=== PATIENT | female | born 1950 | race Two or more races ===

== ENCOUNTER 2017-07-18 13:06 | Outpatient (CLI) | payer OTHER ==
[~2017-07-18 13:06] MED LIST: ADVAIR 2501 DISK W/1 IH; AMOX1TAB12 PO; FENOFIBRATE160 MG; GLIMEPIRIDE4 MG; GLUCOVANCE 2.5/1 TAB; L-METHYL-MC TA1 EACH; LANTUS SOL100 UNIT/1; LANTUS100 U/ML; LEVAQUIN500 MG PO; METFORMIN HCL1000 MG; METFORMIN HCL500 MG; METROGEL-VAGINA70 GM VG; ORPH100T PO; OSTERA TABLET1 EACH; PROAIR RESPICL90 MCG; PROAIR RESPICLICK; PROVENTIL HFA6.7 GM IH; PROVENTIL3 ML/2.5 M; SYMBICORT 16010.2 GM; SYNTHROID150 MCG PO; SYNTHROID175 MCG PO; TRAM1TAB98 PO; TRAMADOL HCL-AP1 TAB PO; ULTRACET PO; XARELTO15 MG PO; XARELTO20 MG PO; ZESTORETIC 10-1 EACH; ZESTORETIC 20/11 TAB PO; ZOCOR40 MG PO
== END 2017-07-18 13:14 | disposition home or self-care (01) ==
LOC: RAD 13:06
DX: M25.562 Pain in left knee (principal)

== ENCOUNTER 2020-03-29 08:31 | Outpatient (CLI) | payer OTHER | END 2020-03-29 08:35 | disposition home or self-care (01) | LOC: SONOGRAMA 08:31 | PROVIDERS: ATTEND Specialist/Technologist, Other Nephrology | DX: K76.0 Fatty (change of) liver, not elsewhere classified (principal); N13.8 Other obstructive and reflux uropathy ==

== ENCOUNTER 2020-04-16 10:16 | Outpatient (CLI) | payer OTHER | END 2020-04-16 10:25 | disposition home or self-care (01) | LOC: NUCLEAR 10:16 | PROVIDERS: ATTEND Family Medicine Adult Medicine | DX: M81.0 Age-related osteoporosis without current pathological fracture (principal) ==

== ENCOUNTER 2020-12-25 11:28 | Emergency (ER) | payer OTHER ==
[~2020-12-25] VITALS: Ht 172.7 cm; Wt 97.5 kg
== END 2020-12-25 14:18 | disposition home or self-care (01) ==
LOC: ER 11:28
DX: I73.9 Peripheral vascular disease, unspecified (principal); M79.604 Pain in right leg

== ENCOUNTER → 2021-08-31 | Emergency (ER) | payer OTHER ==
[~2021-08-31] VITALS: Ht 172.7 cm; Wt 92.1 kg
[~2021-08-31] MED LIST changes: +ATORVASTATIN CA10 MG; +DAFLONEX-XL 11300 MG PO; +HYDROCHLOROTH12.5 MG PO; +MONTELUKAST SODI4 M1
== END | disposition home or self-care (01) ==
LOC: ER 10:41
DX: M79.662 Pain in left lower leg (principal); I80.232 Phlebitis and thrombophlebitis of left tibial vein; I87.2 Venous insufficiency (chronic) (peripheral)

== ENCOUNTER 2021-12-17 20:40 | Emergency (ER) | payer OTHER ==
[~2021-12-17] VITALS: Ht 172.7 cm; Wt 89.8 kg
== END 2021-12-17 21:43 | disposition home or self-care (01) ==
LOC: ER 20:40
DX: E11.621 Type 2 diabetes mellitus with foot ulcer (principal); I10 Essential (primary) hypertension; E07.9 Disorder of thyroid, unspecified; Z87.09 Personal history of other diseases of the respiratory system; Z88.6 Allergy status to analgesic agent; Z88.2 Allergy status to sulfonamides; Z79.4 Long term (current) use of insulin; L97.519 Non-pressure chronic ulcer of other part of right foot with unspecified severity

== ENCOUNTER 2022-06-25 18:59 | Emergency (ER) | payer OTHER ==
[~2022-06-25] VITALS: Ht 172.7 cm; Wt 90.3 kg
[~2022-06-25 18:59] MED LIST changes: +AMLODIPINE BESYL5 MG PO; +GABAPENTIN300 MG PO; +LIPITOR40 MG PO; +LISINOPRIL20 MG PO
== END 2022-06-25 21:25 | disposition home or self-care (01) ==
LOC: ER
DX: L03.031 Cellulitis of right toe (principal); Z89.411 Acquired absence of right great toe; Z88.2 Allergy status to sulfonamides; Z88.6 Allergy status to analgesic agent; E11.9 Type 2 diabetes mellitus without complications; Z79.4 Long term (current) use of insulin

== ENCOUNTER 2023-03-27 11:08 | Outpatient (CLI) | payer OTHER | END 2023-03-27 11:13 | disposition home or self-care (01) | LOC: RAD 11:08 | PROVIDERS: ATTEND Internal Medicine Pulmonary Disease | DX: J43.2 Centrilobular emphysema (principal); Z88.2 Allergy status to sulfonamides ==

== ENCOUNTER 2023-03-28 09:57 | Outpatient (CLI) | payer OTHER | END 2023-03-28 13:35 | disposition home or self-care (01) | LOC: MAMO-SONO 09:57 | PROVIDERS: ATTEND Family Medicine Adult Medicine | DX: Z12.31 Encounter for screening mammogram for malignant neoplasm of breast (principal) ==

== ENCOUNTER 2023-07-23 13:08 | Emergency (ER) | payer OTHER ==
[~2023-07-23] VITALS: Ht 172.7 cm; Wt 102.5 kg
[2023-07-23] MEDS ORDERED: ACTOS45 MG (13:45)
[2023-07-23] MEDS ORDERED: SYMBICORT 16010.2 GM (13:45)
[2023-07-23] MEDS ORDERED: GLIPIZIDE XL5 MG (13:47)
[2023-07-23] MEDS ORDERED: PLAVIX75 MG (13:47)
[2023-07-23] MEDS ORDERED: ZETIA10 MG (13:47)
== END 2023-07-23 15:09 | disposition home or self-care (01) ==
LOC: ER 13:08
DX: M72.2 Plantar fascial fibromatosis (principal); Z88.2 Allergy status to sulfonamides; Z88.6 Allergy status to analgesic agent

== ENCOUNTER 2023-08-13 11:26 | Outpatient (CLI) | payer OTHER ==
[~2023-08-13 11:26] MED LIST changes: +ACTOS45 MG; +GLIPIZIDE XL5 MG; +PLAVIX75 MG; +ZETIA10 MG
== END 2023-08-13 11:32 | disposition home or self-care (01) ==
LOC: RAD 11:26
PROVIDERS: ATTEND Family Medicine Adult Medicine
DX: M12.541 Traumatic arthropathy, right hand (principal)

== ENCOUNTER 2024-10-08 12:03 | Emergency (ER) | payer OTHER ==
[~2024-10-08] VITALS: Ht 172.7 cm; Wt 100.2 kg
[~2024-10-08 12:03] MED LIST changes: +DAFLONEX-XL 11300 MG; +DIALYVITE 800-1 EACH; +EZETIMIBE10 MG; +GLIPIZIDE ER5 MG; +LEVOTHYROXINE125 MCG; +LEVOXYL175 MCG; +LIPITOR40 M1; +LISINOPRIL-HCT1 EAC1; +MONTELUKAST SOD10 MG; +PIOGLITAZONE HC45 MG; +PROVENTIL HFA6.7 GM; +VITAMIN B-121000 MC4; +VITAMIN D350 MC4; +ZESTRIL20 MG; +ZITHROMAX TRI-500 MG PO
[2024-10-08] MEDS ORDERED: ZETIA10 MG PO (12:30)
[2024-10-08] MEDS ORDERED: LIPITOR40 M1 PO (12:30)
[2024-10-08] MEDS ORDERED: PLAVIX75 MG PO (12:30)
[2024-10-08] MEDS ORDERED: ZESTRIL20 MG PO (12:31)
[2024-10-08] MEDS ORDERED: ACTOS45 MG PO (12:31)
[2024-10-08] MEDS ORDERED: GLIPIZIDE XL5 MG PO (12:32)
[2024-10-08] MEDS ORDERED: HYDROCHLOROTH12.5 MG (12:32)
[2024-10-08] MEDS ORDERED: MONTELUKAST SODI4 M1 PO (12:32)
[2024-10-08] MEDS ORDERED: PROAIR RESPICL90 MCG IH (12:33)
[2024-10-08] MEDS ORDERED: SERTRALINE20 MG/1 ML PO (12:33)
[2024-10-08] MEDS ORDERED: NOXIFOL-D32500 UNIT PO (12:33)
[2024-10-08] MEDS ORDERED: SYMBICORT 16010.2 GM IH (12:33)
[2024-10-08] MEDS ORDERED: VITAMIN B121000 MCG PO (12:33)
[2024-10-08] MEDS ORDERED: CEFTRIAXONE SODIUM 2,000 MG VIAL IV ONE (13:00)
[2024-10-08] MEDS ORDERED: CEFTRIAXONE SODIUM 2,000 MG VIAL ONE ×2 (13:21→14:10)
[2024-10-08 13:50] LABS: HEMATOCRIT 28.7 % (36.0-45.00); HEMOGLOBIN 9.6 g/dL (12.0-15.00); MEAN CELL VOLUME 82.7 fL (80.00-100.00); MEAN CORPUSCULAR HEMOGLOBIN 27.6 pg (27.00-32.0); MEAN CORPUSCULAR HGB CONC 33.4 g/dl (32.0-36.0); PLATELET COUNT 253 K/uL (150-450); RED BLOOD COUNT 3.47 M/uL (4.00-6.00); RED CELL DISTRIBUTION WIDTH 15.1 % (11.5-14.5)
[2024-10-08 14:09] LABS: CALCIUM 9.2 mg/dL (8.5-10.1); CREATININE SERUM 1.62 mg/dL (0.55-1.02); GFR 31.06; POTASSIUM 4.17 mEq/L (3.5-5.1)
== END 2024-10-08 15:31 | disposition home or self-care (01) ==
LOC: ER 12:03
PROVIDERS: General Practice
DX: L03.115 Cellulitis of right lower limb (principal); L03.031 Cellulitis of right toe; I10 Essential (primary) hypertension; E11.9 Type 2 diabetes mellitus without complications; Z79.4 Long term (current) use of insulin; Z88.2 Allergy status to sulfonamides; Z88.6 Allergy status to analgesic agent
CPT/HCPCS: 36415; 73630; 96365; 99283; J0696

== ENCOUNTER 2024-11-24 18:02 | Inpatient (IN) | payer OTHER ==
[~2024-11-24] VITALS: Ht 172.7 cm; Wt 100.2 kg
[~2024-11-24 18:02] MED LIST changes: +ACTOS45 MG PO; +GLIPIZIDE XL5 MG PO; +HYDROCHLOROTH12.5 MG; +LIPITOR40 M1 PO; +MONTELUKAST SODI4 M1 PO; +NOXIFOL-D32500 UNIT PO; +PLAVIX75 MG PO; +PROAIR RESPICL90 MCG IH; +SERTRALINE20 MG/1 ML PO; +SYMBICORT 16010.2 GM IH; +VITAMIN B121000 MCG PO; +ZESTRIL20 MG PO; +ZETIA10 MG PO
--- NOTE | 2024-11-24 18:29 | NUR ---
PTE ALERTA Y ORIENTADA X3 QUIEN REFIERE VENIR YA QUE LA PUJA DEL DEDO NEEMA DEL PIE DERECHO SE LE EVELYN HOY DURNATE EL NAOMY. SE OBSERVA NECROTICO.
[2024-11-24] MEDS ORDERED: VANCOMYCIN HCL 1,000 MG VIAL ONE (20:19)
[2024-11-24] MEDS ORDERED: VANCOMYCIN HCL 1,000 MG VIAL IV ONE (20:30)
--- NOTE | 2024-11-24 20:45 | NUR ---
SE ORIENTA PTE SOBRE TX A SEGUIR, LA MISMA REFIERE ENTENDER. SE DAWSON MUESTRA DE LAB, SE CANALIZA Y SE ADMINISTRA MED ABDIAS ORDEN MEDICA
[2024-11-24 21:11] LABS: BASO % 0.8 % (0.1-1.2); EOS # 0.39 (0.04-0.54); EOS % 3.7 % (0.7-7.0); HEMATOCRIT 29.3 % (34.1-44.9); HEMOGLOBIN 9.6 g/dL (11.2-15.7); LYMPH # 1.11 (1.18-3.74); LYMPH % 10.5 % (19.3-53.1); MONO # 0.66 (0.24-0.82); MONO % 6.3 % (4.7-12.5); NEUT # 8.24 (1.56-6.13); NEUT % 78.2 % (34.0-71.1); PLATELET COUNT 269 K/uL (163-369); RED BLOOD COUNT 3.69 M/uL (3.93-5.22); RED CELL DISTRIBUTION WIDTH 16.2 % (11.6-14.4)
[2024-11-24 21:22] LABS: ALBUMIN 3.6 gm/dL (3.4-5.0); BILIRUBIN TOTAL 0.39 mg/dL (0.3-1.2); CALCIUM 9.2 mg/dL (8.5-10.1); CREATININE SERUM 1.77 mg/dL (0.55-1.02); GFR 28.04; GLOBULINA 4.7 G/DL (2.4-3.5); POTASSIUM 3.82 mEq/L (3.5-5.1); TOTAL PROTEIN 8.3 gm/dL (6.4-8.2)
[2024-11-24 21:22] LABS: ERYTHROCYTE SEDIMENTATION RATE > 130 mm/hr (0-30)
[2024-11-24 21:29] LABS: C-REACTIVE PROTEIN 3.99 MG/DL (0.00-0.29)
[2024-11-25] VITALS (7 sets, daily range): BP systolic 127–141; BP diastolic 55–78; O2SAT 99–100
[2024-11-25] MEDS ORDERED: PIPERACILLIN/TAZOBACTAM SODIUM 2.25 GM in DEXTROSE 5 % IN WATER 50 ML IV SCH (00:07)
[2024-11-25] MEDS ORDERED: DEXTROSE 50 % IN WATER 0.5 G/ML DISP.SYRIN IV PRN (00:15)
[2024-11-25] MEDS ORDERED: 0.9 % SODIUM CHLORIDE 1,000 ML IV SCH (00:15)
[2024-11-25] MEDS ORDERED: MORPHINE SULFATE 2 MG/ML CARTRIDGE IV PRN (00:15)
[2024-11-25] MEDS ORDERED: INSULIN LISPRO 1,000 UNIT/10 ML UNITS SUBCUTANEO PRN (00:15)
[2024-11-25] MEDS ORDERED: ACETAMINOPHEN 500 MG GEL..CAP PO PRN (00:15)
[2024-11-25 07:36] LABS: INR 1.04; PARTIAL THROMBOPLASTIN TIME 25.9 SECONDS (22.0-34.0); PROTHROMBIN TIME 11.3 SECONDS (9.0-11.5)
[2024-11-25] MEDS ORDERED: ATORVASTATIN CALCIUM 40 MG TABLET PO SCH (09:00)
[2024-11-25] MEDS ORDERED: ENOXAPARIN SODIUM 30 MG/0.3 ML SYRINGE SUBCUTANEO SCH (09:00)
[2024-11-25] MEDS ORDERED: FAMOTIDINE/PF 20 MG in 0.9 % SODIUM CHLORIDE 8 ML IV PUSH SCH (09:00)
[2024-11-25] MEDS ORDERED: SERTRALINE HCL 25 MG TABLET PO SCH (09:00)
[2024-11-25] MEDS ORDERED: REMDESIVIR 100 MG VIAL IV NR (19:00)
[2024-11-25 20:26] LABS: ALBUMIN 3.3 gm/dL (3.4-5.0); BILIRUBIN TOTAL 0.32 mg/dL (0.3-1.2); CALCIUM 8.9 mg/dL (8.5-10.1); CREATININE SERUM 1.96 mg/dL (0.55-1.02); GFR 24.93; GLOBULINA 3.7 G/DL (2.4-3.5); POTASSIUM 4.46 mEq/L (3.5-5.1)
[2024-11-26] VITALS (8 sets, daily range): BP systolic 108–146; BP diastolic 55–64; O2SAT 96–100
[2024-11-26 07:27] LABS: BILIRUBIN TOTAL 0.24 mg/dL (0.3-1.2); CALCIUM 8.6 mg/dL (8.5-10.1); CREATININE SERUM 1.7 mg/dL (0.55-1.02); GFR 29.38; GLOBULINA 3.4 G/DL (2.4-3.5); POTASSIUM 4.54 mEq/L (3.5-5.1); TOTAL PROTEIN 6.4 gm/dL (6.4-8.2)
[2024-11-26] MEDS ORDERED: FAMOTIDINE/PF 20 MG/2 ML VIAL ONE ×2 (08:05→08:08)
[2024-11-26] MEDS ORDERED: REMDESIVIR 100 MG VIAL IV SCH (17:00)
[2024-11-27 01:55] VITALS: BP 127/80; O2SAT 96
[2024-11-27 10:59] VITALS: BP 122/62; O2SAT 98
[2024-11-27 12:17] VITALS: O2SAT 100
[2024-11-27 16:19] VITALS: BP 150/68; O2SAT 98
[2024-11-28] VITALS (9 sets, daily range): BP systolic 124–145; BP diastolic 65–79; O2SAT 90–998
[2024-11-28] MEDS ORDERED: METHYLPREDNISOLONE SOD SUCC 125 MG VIAL ONE (06:53)
[2024-11-28] MEDS ORDERED: DIPHENHYDRAMINE HCL 50 MG/ML VIAL 1ML IM STA (06:56)
[2024-11-28] MEDS ORDERED: METHYLPREDNISOLONE SOD SUCC 40 MG VIAL IV STA (06:56)
[2024-11-28] MEDS ORDERED: ERTAPENEM SODIUM 1,000 MG VIAL IV SCH (09:00)
[2024-11-28] MEDS ORDERED: CEFAZOLIN SODIUM 1,000 MG VIAL IV NR (14:30)
[2024-11-29] VITALS (8 sets, daily range): BP systolic 115–156; BP diastolic 65–84; O2SAT 90–100
[2024-11-29 08:08] LABS: BASO % 0.3 % (0.1-1.2); EOS # 0.01 (0.04-0.54); EOS % 0.1 % (0.7-7.0); HEMATOCRIT 27.1 % (34.1-44.9); LYMPH # 1.16 (1.18-3.74); MEAN CORPUSCULAR HEMOGLOBIN 26.6 pg (25.6-32.2); MONO # 0.78 (0.24-0.82); MONO % 5.3 % (4.7-12.5); NEUT # 12.38 (1.56-6.13); NEUT % 84.9 % (34.0-71.1); PLATELET COUNT 244 K/uL (163-369); RED BLOOD COUNT 3.35 M/uL (3.93-5.22); RED CELL DISTRIBUTION WIDTH 16.2 % (11.6-14.4)
[2024-11-29 08:10] LABS: HEMOGLOBIN 8.9 g/dL (11.2-15.7)
[2024-11-29 08:50] LABS: BILIRUBIN TOTAL 0.2 mg/dL (0.3-1.2); CALCIUM 8.5 mg/dL (8.5-10.1); CREATININE SERUM 1.96 mg/dL (0.55-1.02); GFR 24.93; GLOBULINA 3.7 G/DL (2.4-3.5); POTASSIUM 4.65 mEq/L (3.5-5.1); TOTAL PROTEIN 6.7 gm/dL (6.4-8.2)
[2024-11-29] MEDS ORDERED: FAMOtidine 20 MG TABLET PO SCH (09:00)
[2024-11-29] MEDS ORDERED: CEFAZOLIN SODIUM 1,000 MG VIAL IV SCH (17:00)
[2024-11-29] MEDS ORDERED: INSULIN GLARGINE,HUM.REC.ANLOG 1,000 UNITS/10 ML UNITS SUBCUTANEO SCH (21:00)
[2024-11-30] VITALS (9 sets, daily range): BP systolic 127–168; BP diastolic 55–79; O2SAT 89–100
[2024-11-30 07:25] LABS: BASO % 0.8 % (0.1-1.2); EOS # 0.32 (0.04-0.54); EOS % 3.3 % (0.7-7.0); HEMATOCRIT 28.5 % (34.1-44.9); HEMOGLOBIN 9.2 g/dL (11.2-15.7); LYMPH # 1.75 (1.18-3.74); LYMPH % 18.2 % (19.3-53.1); MEAN CORPUSCULAR HEMOGLOBIN 25.8 pg (25.6-32.2); MONO # 0.62 (0.24-0.82); MONO % 6.5 % (4.7-12.5); NEUT # 6.59 (1.56-6.13); NEUT % 68.6 % (34.0-71.1); PLATELET COUNT 270 K/uL (163-369); RED BLOOD COUNT 3.57 M/uL (3.93-5.22); RED CELL DISTRIBUTION WIDTH 16.3 % (11.6-14.4)
[2024-11-30] MEDS ORDERED: INSULIN GLARGINE,HUM.REC.ANLOG 1,000 UNITS/10 ML UNITS SUBCUTANEO SCH (21:00)
[2024-12-01] VITALS: BP 134/61; O2SAT 97
[2024-12-01 01:07] VITALS: O2SAT 98
[2024-12-01 06:22] VITALS: O2SAT 87
[2024-12-01 07:00] VITALS: BP 154/74; O2SAT 98
[2024-12-01 09:25] VITALS: O2SAT 96
[2024-12-01] MEDS ORDERED: LIPITOR40 M1 PO (12:46)
[2024-12-01] MEDS ORDERED: SERTRALINE HCL25 MG PO (12:47)
[2024-12-01] MEDS ORDERED: FAMOTIDINE20 MG PO (12:47)
[2024-12-01] MEDS ORDERED: DUI500 PO (12:50)
== END 2024-12-01 16:43 | disposition home or self-care (01) | DRG 638 ==
LOC: ER 18:02 → SEC-K 11-25 00:10 → MEDI 11-25 00:10
PROVIDERS: General Practice; Internal Medicine; ADMIT Internal Medicine; ATTEND Internal Medicine
PROC: B54DZZZ Ultrasonography of Bilateral Lower Extremity Veins (ICD-10-PCS; principal; 2024-11-25)
PROC: 4A12X4Z Monitoring of Cardiac Electrical Activity, External Approach (ICD-10-PCS; 2024-11-25)
PROC: B44HZZZ Ultrasonography of Bilateral Lower Extremity Arteries (ICD-10-PCS; 2024-11-25)
PROC: BQ3LZZZ Magnetic Resonance Imaging (MRI) of Right Foot (ICD-10-PCS; 2024-11-26)
DX: E11.621 Type 2 diabetes mellitus with foot ulcer (principal); L03.115 Cellulitis of right lower limb; L97.518 Non-pressure chronic ulcer of other part of right foot with other specified severity; Z79.4 Long term (current) use of insulin; B95.61 Methicillin susceptible Staphylococcus aureus infection as the cause of diseases classified elsewhere; L08.89 Other specified local infections of the skin and subcutaneous tissue; E11.40 Type 2 diabetes mellitus with diabetic neuropathy, unspecified; N17.8 Other acute kidney failure; E03.8 Other specified hypothyroidism; E11.22 Type 2 diabetes mellitus with diabetic chronic kidney disease; I12.9 Hypertensive chronic kidney disease with stage 1 through stage 4 chronic kidney disease, or unspecified chronic kidney disease; N18.9 Chronic kidney disease, unspecified; D64.9 Anemia, unspecified
CPT/HCPCS: 73221